=== PATIENT | female | born 1985 | race Caucasian/White ===

== ENCOUNTER 2016-11-28 20:41 | Inpatient (IN) | payer OTHER ==
[2016-11-28] VITALS (10 sets, daily range): BP systolic 114–123; BP diastolic 66–95; PULSE 70–101; RESP 18; O2SAT 100
[~2016-11-28 20:41] MED LIST: DIPHTH/TETANUS/ACEL PERTUSSIS (BOOSTER) 0.5 ML VIAL/PFS IM ONE; MEASLES, MUMPS, RUBELLA VACCINE 0.5 ML VIAL SQ ONE; PRENCAP6 PO
[2016-11-28] MEDS ORDERED: LACTATED RINGER'S 1000 ML INJ 1,000 ML IV PRN (21:15)
[2016-11-28] MEDS ORDERED: MINERAL OIL 10 ML VIAL TOPICAL PRN (21:15)
[2016-11-28] MEDS ORDERED: LIDOCAINE HCL 1% 50 ML VIAL INFIL PRN (21:15)
[2016-11-28] MEDS ORDERED: SODIUM CHLORID 0.9% 500 ML INJ 500 ML IV PRN (21:15)
[2016-11-28] MEDS ORDERED: LIDOCAINE HCL 1% 50 ML VIAL I-DERMAL PRN (21:15)
[2016-11-28] MEDS ORDERED: LACTATED RINGER'S 1000 ML INJ 1,000 ML IV SCH (21:15)
[2016-11-28] MEDS ORDERED: CITRIC ACID-SODIUM CITRATE LIQ 30 ML UDC PO SCH (21:15)
[2016-11-28] MEDS ORDERED: OXYTOCIN 30 UNITS-500ML PREMIX 500 ML IV ONE (21:15)
[2016-11-28] MEDS ORDERED: PENICILLIN G POTASSIUM INJ 5,000,000 UNITS in SODIUM CHLORIDE 0.9% INJ 100 ML IV ONE (21:30)
[2016-11-28] MEDS ORDERED: SODIUM CHLOR 0.9% 1000 ML INJ 1,000 ML IV PRN (21:35)
[2016-11-28] MEDS ORDERED: fentaNYL 2MCG-BUPIV 0.125% INJ 100 ML ONE (21:42)
[2016-11-28] MEDS ORDERED: ePHEDrine/NS 25 MG/5 ML SYR ONE (21:42)
--- NOTE | 2016-11-28 21:56 | HHI.HP ---
HPI Chief Complaint active labor at term Date Seen: Nov 28, 2016 Travel History International Travel<30 Days: No Contact w/Intl Traveler<30Days: No Known Affected Area: No History of Present Illness HPI 30 yo mwf at 39 1/2 weeks IUP to L & D with regular UCs. No leaking, bleeding. GFM. No N, V, SARMIENTO blurred vision or RUQT PNC with HOGA in early first trimester No GDM, HTN or PTL baby on small side. Normal unventful PNC Allergies-Medications (Allergen,Severity, Reaction): Coded Allergies: No Known Allergies (Unverified , 10/31/14) Home Meds Reported Medications Mv & Min W/Fe Fumarat ( 1) Cap1 Cap PO DAILY 10/31/14 Physical Exam Narrative GENERAL: Well-nourished, well-developed patient. SKIN: Warm and dry. HEAD: Normocephalic and atraumatic. EYES: No scleral icterus. No injection or drainage. ENT: No nasal drainage noted. Mucous membranes pink. Airway patent. NECK: Supple, trachea midline. No JVD. CARDIOVASCULAR: Regular rate and rhythm without murmurs, gallops, or rubs. RESPIRATORY: Breath sounds equal bilaterally. No accessory muscle use. BREASTS: Bilateral exam showed no masses , no retractions, no nipple discharge. ABDOMEN/GI: Abdomen soft, non-tender, bowel sounds present, no rebound, no guarding 37 week FH strip reacive cervix 6 cm /100%/ 0 station/deviated to her left AROM clear scant fluid EXTREMITIES: No cyanosis or edema. BACK: Nontender without obvious deformity. No CVA tenderness. NEUROLOGICAL: Awake and alert. Motor and sensory grossly within normal limits. Five out of 5 muscle strength in all muscle groups. Normal speech. Data Data Orders Ob (2e) Additional Admit Info (11/28/16 21:18) Admit To Inpatient (11/28/16 ) Code Status (11/28/16 21:15) Vital Signs (Adult) .Per protocol (11/28/16 21:15) Activity Oob Ad Cristal (11/28/16 21:15) Heart (11/28/16 21:15) Amnioinfusion (11/28/16 21:15) Urinary Catheter Management .ONCE (11/28/16 21:15) Diet Liquid (11/29/16 Breakfast) Lactated Ringer's 1000 Ml Inj (Lr 1000 M (11/28/16 21:15) Lactated Ringer's 1000 Ml Inj (Lr 1000 M (11/28/16 21:15) Sodium Chlorid 0.9% 500 Ml Inj (Ns 500 M (11/28/16 21:15) Sodium Chlor 0.9% 1000 Ml Inj (Ns 1000 M (11/28/16 21:35) Lidocaine 1% Inj (50 Ml) (Xylocaine 1% I (11/28/16 21:15) Citric Acid-Sodium Citrate Liq (Bicitra (11/28/16 21:15) Fentanyl Inj (Fentanyl Inj) (11/28/16 21:15) Fentanyl Inj (Fentanyl Inj) (11/28/16 21:15) Penicillin G Potassium Inj (Pfizerpen-G (11/28/16 21:30) Penicillin G Potassium Inj (Pfizerpen-G (11/29/16 02:00) Complete Blood Count With Diff (11/28/16 21:15) Hold Clot (11/28/16 21:15) Abo/Rh Blood Type (11/28/16 21:15) Urinalysis - C+S If Indicated (11/28/16 21:15) Resp Oxygen Non Rebreathe Mask (11/28/16 ) ^ Epidural / Intrathecal Infus (11/28/16 21:15) Oxytocin 30 Units-500ml Premix (Pitocin (11/28/16 21:15) Lidocaine 1% Inj (50 Ml) (Xylocaine 1% I (11/28/16 21:15) Light Mineral Oil (Muri-Lube Oil) (11/28/16 21:15) Inpatient Certification (11/28/16 ) Fentanyl 2mcg-Bupiv 0.125% Inj (Fentanyl (11/28/16 21:42) Ephedrine/Ns 25 Mg/5 Ml Syr (Ephedrine/N (11/28/16 21:42) Assessment/Plan Assessment and Plan term in labor no risk factors. anticipate epidural now. Tori Disla MD Nov 28, 2016 21:56
[2016-11-28 22:41] LABS: BASOPHIL % 0.3 % (0.0-2.0); EOSINOPHIL # 0.1 TH/MM3 (0-0.4); EOSINOPHIL % 0.6 % (0.0-4.0); HEMO FLAGS DIFF FINAL; LYMPH % 16.8 % (9.0-44.0); LYMPHOCYTE # 1.8 TH/MM3 (1.0-4.8); MEAN CELL VOLUME 86.2 FL (80.0-100.0); MEAN CORPUSCULAR HGB CONC 32.4 % (32.0-36.0); MONO % 8.2 % (0.0-8.0); NEUT % 74.1 % (16.0-70.0); PLATELET COUNT 172 TH/MM3 (150-450); RED BLOOD COUNT 4.06 MIL/MM3 (4.00-5.30); RED CELL DISTRIBUTION WIDTH 13.7 % (11.6-17.2); WHITE BLOOD COUNT 10.8 TH/MM3 (4.0-11.0)
[2016-11-28] MEDS ORDERED: NO SYSTEM NARCOTICS PRN (22:45)
[2016-11-28] MEDS ORDERED: DO NOT ADMINISTER ANTICOAGULANTS PRN (22:45)
[2016-11-28] MEDS ORDERED: ePHEDrine/NS 25 MG/5 ML SYR IV PRN (22:45)
[2016-11-28] MEDS ORDERED: fentaNYL 2MCG-BUPIV 0.125% 100 ML EPIDURAL SCH (22:45)
[2016-11-28 22:59] LABS: BACTERIA, URINE RARE /hpf; BLOOD, URINE NEG (NEG); GLUCOSE,URINE NEG (NEG); KETONE, URINE NEG (NEG); MUCUS URINE FEW /lpf (OCC); NITRITE,URINE NEG (NEG); PH, URINE 6.5 (5.0-8.5); URINE COLOR YELLOW (YELLW/STRAW)
[2016-11-28] MEDS ORDERED: ONDANSETRON ODT 4 MG TAB PO PRN (23:00)
[2016-11-28] MEDS ORDERED: DOCUSATE SODIUM 50 MG/SENNA 8.6 MG TAB PO PRN (23:00)
[2016-11-28] MEDS ORDERED: SODIUM CHLORIDE 0.9% FLUSH 10 ML FLUSH IV FLUSH PRN (23:00)
[2016-11-28] MEDS ORDERED: ALUMINUM/MAGNESIUM/SIMETH 30 ML CUP PO PRN (23:00)
[2016-11-28] MEDS ORDERED: ACETAMINOPHEN 325 MG TAB PO PRN (23:00)
[2016-11-28] MEDS ORDERED: BENZOCAINE 20% TOPICAL SPRAY 60 ML CAN TOPICAL PRN (23:00)
[2016-11-28] MEDS ORDERED: WITCH HAZEL 50%/GLYCERIN 12.5% 40 PAD JAR TOPICAL PRN (23:00)
[2016-11-28] MEDS ORDERED: OXYTOCIN 30 UNITS-500ML PREMIX 500 ML IV SCH (23:00)
[2016-11-28] MEDS ORDERED: ZOLPIDEM TARTRATE 5 MG TAB PO PRN (23:00)
--- NOTE | 2016-11-28 23:00 | PD.OB.DELI ---
Anesthesia: Epidural Episiotomy: None Vaginal Delivery: Normal Presentation: Occiput anterior Nuchal Cord: None Delayed cord clamping (45 sec): Yes Infant: Male One Minute : 8 Five Minute : 9 Weight: 8 Placenta: Spontaneous delivery Laceration: No lacerations Estimated blood loss: Tori Valente MD Nov 28, 2016 23:00
[2016-11-28 23:03] LABS: COMMENT (UR) CULT NOT INDICATED; CULTURE IF INDICATED CULT NOT INDICATED
[2016-11-29] VITALS (7 sets, daily range): BP systolic 96–118; BP diastolic 65–73; PULSE 64–67; RESP 14–18; TEMP 98–98.3
[2016-11-29] MEDS ORDERED: PENICILLIN G POTASSIUM INJ 2,500,000 UNITS in SODIUM CHLORIDE 0.9% INJ 100 ML IV SCH (02:00)
[2016-11-29] MEDS: IBUPROFEN 600 MG TAB PO PRN ×3 (05:58→22:36)
--- NOTE | 2016-11-29 06:05 | HHI.OB ---
Subjective Post Day: 1 Remarks Doing well, Tolerating her dieet Pain is well controlled, Baby is doing well. Having trouble sleeping hubby was snoring. Objective Vitals/I&O Vital Signs Date Time Temp Pulse Resp B/P Pulse Ox O2 Delivery O2 Flow Rate FiO2 11/29/16 02:30 98.0 65 18 103/73 11/29/16 01:35 98.3 11/29/16 01:00 64 118/65 11/29/16 00:31 67 108/65 11/29/16 00:01 64 115/72 11/29/16 00:01 64 115/72 11/28/16 23:31 78 118/75 11/28/16 23:00 101 117/67 11/28/16 23:00 18 11/28/16 22:31 83 115/66 11/28/16 22:22 18 11/28/16 22:20 85 123/71 11/28/16 22:18 70 121/68 11/28/16 22:16 75 11/28/16 22:15 83 11/28/16 22:15 100 11/28/16 22:10 100 11/28/16 22:10 116/95 11/28/16 22:10 88 11/28/16 22:08 74 114/95 Objective Remarks GENERAL: Well-nourished, well-developed patient. CARDIOVASCULAR: Regular rate and rhythm without murmurs, gallops, or rubs. RESPIRATORY: Breath sounds equal bilaterally. No accessory muscle use. ABDOMEN/GI: Abdomen soft, non-tender. Fundus: Firm, non-tender at umbilicus. GENITOURINARY: Light to moderate bleeding. EXTREMITIES: No cyanosis or edema, non-tender, without signs of DVT. Medications and IVs Current Medications Medications (Trade) Dose Ordered Sig/Jacklyn Route Start Time Stop Time Status Last Admin Miscellaneous Information No systemic narcotics to be given except... UNSCH PRN .XX 11/28/16 22:45 11/29/16 22:44 Miscellaneous Information DO NOT ADMINISTER ANY ANTICOAGUL... UNSCH PRN .XX 11/28/16 22:45 11/29/16 22:44 (NS Flush) 2 ml BID IV FLUSH 11/29/16 09:00 (NS Flush) 2 ml UNSCH PRN IV FLUSH 11/28/16 23:00 (Tylenol) 650 mg Q4H PRN PO 11/28/16 23:00 (Motrin) 600 mg Q6H PRN PO 11/28/16 23:00 11/29/16 05:58 (Americaine 20% Top Spr) 1 spray Q4H PRN TOPICAL 11/28/16 23:00 (Tucks Pads) 1 applic QID PRN TOPICAL 11/28/16 23:00 (Aye-Colace) 2 tab Q12H PRN PO 11/28/16 23:00 (Ambien) 5 mg HS PRN PO 11/28/16 23:00 (Mag-Al Plus Susp Liq) 15 ml Q8H PRN PO 11/28/16 23:00 (Zofran Odt) 4 mg Q6H PRN PO 11/28/16 23:00 Assessment/Plan Assessment and Plan PPD #1 Insomnia encouraged Kleber crawford Doing well Routine care. Discharge Planning d/c home soon. Vero Costa MD Nov 29, 2016 06:05
[2016-11-29] MEDS ORDERED: IBUP-232 PO (13:01)
--- NOTE | 2016-11-29 13:02 | HHI.DCPOC ---
Discharge Care Plan Diagnosis: (1) (normal spontaneous vaginal delivery) Report Symptoms to Your Doctor -Temperature above 100.5 degrees -Redness, of incision or excessive or foul smelling drainage -Unusual pain or calf pain -Increased vaginal bleeding -Painful or difficulty urinating -Feelings of extreme sadness or anxiety after 2 weeks Goals to Promote Your Health * To prevent worsening of your condition and complications * To maintain your health at the optimal level Directions to Meet Your Goals Take your medications as prescribed Follow your dietary instruction Follow activity as directed Ensure plenty of rest for recovery Drink fluids for hydration Keep your appointments as scheduled Take your immunizations and boosters as scheduled If your symptoms worsen call your PCP, if no PCP go to Urgent Care Center or Emergency Room Smoking is Dangerous to Your Health. Avoid second hand smoke Call the 24-hour crisis hotline for domestic abuse at Vero Costa MD Nov 29, 2016 13:02
[2016-11-29] MEDS: SODIUM CHLORIDE 0.9% FLUSH 10 ML FLUSH IV FLUSH SCH (21:00)
[2016-11-30] MEDS: IBUPROFEN 600 MG TAB PO PRN ×2 (06:27→14:21)
--- NOTE | 2016-11-30 07:51 | HHI.OB ---
Subjective Post Day: 2 Remarks doing well nursing no issues Objective Vitals/I&O Vital Signs Date Time Temp Pulse Resp B/P Pulse Ox O2 Delivery O2 Flow Rate FiO2 11/29/16 23:36 16 11/29/16 20:00 98.3 64 18 97/66 11/29/16 08:00 98.3 66 14 96/66 Objective Remarks GENERAL: Well-nourished, well-developed patient. CARDIOVASCULAR: Regular rate and rhythm without murmurs, gallops, or rubs. RESPIRATORY: Breath sounds equal bilaterally. No accessory muscle use. ABDOMEN/GI: Abdomen soft, non-tender. Fundus: Firm, non-tender at umbilicus. GENITOURINARY: Light to moderate bleeding. EXTREMITIES: No cyanosis or edema, non-tender, without signs of DVT. Medications and IVs Current Medications Medications (Trade) Dose Ordered Sig/Jacklyn Route Start Time Stop Time Status Last Admin (NS Flush) 2 ml BID IV FLUSH 11/29/16 09:00 (NS Flush) 2 ml UNSCH PRN IV FLUSH 11/28/16 23:00 (Tylenol) 650 mg Q4H PRN PO 11/28/16 23:00 (Motrin) 600 mg Q6H PRN PO 11/28/16 23:00 11/30/16 06:27 (Americaine 20% Top Spr) 1 spray Q4H PRN TOPICAL 11/28/16 23:00 (Tucks Pads) 1 applic QID PRN TOPICAL 11/28/16 23:00 (Aye-Colace) 2 tab Q12H PRN PO 11/28/16 23:00 (Ambien) 5 mg HS PRN PO 11/28/16 23:00 (Mag-Al Plus Susp Liq) 15 ml Q8H PRN PO 11/28/16 23:00 (Zofran Odt) 4 mg Q6H PRN PO 11/28/16 23:00 Assessment/Plan Assessment and Plan PPD #2 Ready for discharge Discharge Planning home today Tori Disla MD Nov 30, 2016 07:51
--- NOTE | 2016-11-30 07:52 | HHI.DCPOC ---
Discharge Care Plan Report Symptoms to Your Doctor -Temperature above 100.5 degrees -Redness, of incision or excessive or foul smelling drainage -Unusual pain or calf pain -Increased vaginal bleeding -Painful or difficulty urinating -Feelings of extreme sadness or anxiety after 2 weeks Goals to Promote Your Health * To prevent worsening of your condition and complications * To maintain your health at the optimal level Directions to Meet Your Goals Take your medications as prescribed Follow your dietary instruction Follow activity as directed Ensure plenty of rest for recovery Drink fluids for hydration Keep your appointments as scheduled Take your immunizations and boosters as scheduled If your symptoms worsen call your PCP, if no PCP go to Urgent Care Center or Emergency Room Smoking is Dangerous to Your Health. Avoid second hand smoke Call the 24-hour crisis hotline for domestic abuse at Tori Disla MD Nov 30, 2016 07:52
[2016-11-30 08:00] VITALS: BP 96/73; PULSE 65; RESP 18; TEMP 97.9
[2016-11-30] MEDS: SODIUM CHLORIDE 0.9% FLUSH 10 ML FLUSH IV FLUSH SCH (09:00)
== END 2016-11-30 19:09 | disposition home or self-care (01) | DRG 775 ==
LOC: HOBED 20:41 → H2EB 21:19 → H1EA 11-29 01:47
PROVIDERS: ADMIT Obstetrics & Gynecology; ATTEND Obstetrics & Gynecology
PROC: 10E0XZZ Delivery of Products of Conception, External Approach (ICD-10-PCS; principal; 2016-11-28)
PROC: 3E0R3CZ (ICD-10-PCS; 2016-11-28)
PROC: 00HU33Z Insertion of Infusion Device into Spinal Canal, Percutaneous Approach (ICD-10-PCS; 2016-11-28)
DX: O80 Encounter for full-term uncomplicated delivery (principal); Z37.0 Single live birth; Z3A.39 39 weeks gestation of pregnancy
CPT/HCPCS: 81001; 85025; 86900; 86901; 90715; J2540; J2590